=== PATIENT | female | born 1990 | race Caucasian/White ===

== ENCOUNTER → 2017-08-09 | Outpatient (CLI) | payer OTHER ==
[~2017-08-09] MED LIST: FERR1TAB23; PRENTAB26 PO
--- NOTE | 2017-08-09 11:48 | DIAGNOSTIC IMAGING REPORT ---
HYSTEROSALPINGOGRAM HISTORY: Infertility. FLUOROSCOPY TIME: . 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 Multiple spot images were obtained. FINDINGS: The uterine cavity is normal in size, shape, and position. The fallopian tubes are patent and there is free peritoneal spill bilaterally. Right uterine tube passes posterior to the uterine body. IMPRESSION: Normal hysterosalpingogram. The right uterine tube passes posterior to the uterine body The above report was generated using voice recognition software. It may contain grammatical, syntax or spelling errors. Electronically signed by: Neftaly Vivar M.D. 08/09/2017 11:47 AM Dictated Date/Time: 08/09/2017 11:46 AM
== END | disposition home or self-care (01) ==
LOC: C.RAD 10:47
PROVIDERS: ATTEND Obstetrics & Gynecology
DX: N97.9 Female infertility, unspecified (principal)

== ENCOUNTER 2022-04-28 03:26 | Inpatient (IN) ==
[2022-04-28] MEDS ORDERED: LIDOCAINE 1% LOCAL 20 ML VIAL INFIL PRN (03:45)
[2022-04-28] MEDS ORDERED: OXYTOCIN 30 UNITS/500 ML BAG IV PRN ×3 (03:45→12:33)
[2022-04-28] MEDS: LACTATED RINGER'S 1,000 ML IV PRN ×2 (03:57→05:00)
[2022-04-28] MEDS ORDERED: SODIUM CHLORIDE 0.9% INJ 10 ML VIAL ONE (04:04)
[2022-04-28] MEDS ORDERED: ePHEDrine sulfate 50 MG/ML AMP ONE (04:04)
[2022-04-28] MEDS ORDERED: BUPIVACAINE 0.25% 30 ML VIAL ONE (04:04)
[2022-04-28] MEDS ORDERED: fentaNYL citrate 100 MCG/2 ML VIAL ONE (04:04)
[2022-04-28] MEDS ORDERED: LIDOCAINE 2%/EPINEPHRINE 1:200,000 20 ML SDV ONE (04:05)
[2022-04-28] MEDS ORDERED: fentaNYL 2MCG/ML ROPIVACAINE 1.25MG/ML 100 ML BAG EPI ONE (04:05)
[2022-04-28 04:46] LABS: Hematocrit (blood only) 37.4 % (34.1-44.9); Mean Corpuscular Hemoglobin 34.8 pg (25.0-34.0); Mean Corpuscular Hgb Conc 34.8 g/dL (32.0-36.0); Platelet Count 157 K/uL (130-400); RDW Coefficient of Variation 12.9 % (11.5-14.5); RDW Standard Deviation 47.3 fL (36.4-46.3); Red Blood Count 3.74 M/uL (3.93-5.22); White Blood Count 8.35 K/ul (4.8-10.8)
--- NOTE | 2022-04-28 04:54 | Anesthesiology Consultation ---
Date of Service April 28, 2022 Assessment & Plan (1) Encounter for pre-operative examination: Chart Review Chart Review: Acceptable Risk for Labor Epidural History Height/Weight Height: 4 ft 11 in Weight: 64.4 kg Allergies Allergy/AdvReac Type Severity Reaction Status Date / Time No Known Allergies Allergy Unverified 12/05/19 13:19 Medications Home Medications Medication Instructions Recorded Confirmed Last Taken sertraline 50 mg tablet 100 mg PO QAM 04/26/19 04/28/22 04/27/22 levothyroxine 75 mcg capsule 0.5 mcg PO DAILY 03/01/20 04/28/22 04/27/22 oagxcloc-hzj-Kz-FA 1 mg 1 tab PO DAILY 03/01/20 04/28/22 04/27/22 tablet ferrous sulfate 27 mg iron tablet 27 mg PO DAILY 04/28/22 04/28/22 04/27/22 Active Medications Generic Name Dose Route Start Last Admin Trade Name Freq PRN Reason Stop Dose Admin Lactated Ringer's 1,000 mls @ 125 mls/hr 04/28/22 03:45 04/28/22 03:57 Lr IV 04/30/22 03:44 999 mls/hr .Q8H PRN Administration L&D Protocol Protocol Past Medical History Medical History Anxiety Hypothyroidism Past Surgical History Surgical History H/O breast augmentation H/O wisdom tooth extraction History of hysteroscopy Social History Smoking Status: Never smoker Hx Alcohol Use: No Hx Substance Use: No Physical Exam Vital Signs Last Vital Signs Temp 36.8 C 04/28/22 03:44 Pulse 82 04/28/22 04:49 Resp 18 04/28/22 03:44 BP 111/64 04/28/22 03:49 Pulse Ox 99 04/28/22 04:49 Testing Laboratory Results 04/28/22 04:21
[2022-04-28] MEDS ORDERED: ONDANSETRON INJ 2 MG/ML 2 ML VIAL IV PRN (05:18)
[2022-04-28] MEDS ORDERED: ePHEDrine sulfate 50 MG/ML AMP IV PRN (05:18)
[2022-04-28] MEDS ORDERED: fentaNYL 2MCG/ML ROPIVACAINE 1.25MG/ML 100 ML BAG EPI PRN (05:18)
[2022-04-28] MEDS ORDERED: NALOXONE HCL 0.4 MG/1 ML VIAL/CARP IV PRN (05:18)
[2022-04-28] MEDS ORDERED: NALOXONE HCL 1 MG in SODIUM CHLORIDE 0.9% 1000ML 1,000 ML IV PRN (05:18)
--- NOTE | 2022-04-28 07:14 | Obstetrical Progress Note ---
Date of Service April 28, 2022 Assessment & Plan (1) : Plan: FHR; CAT1 Ctx 4-6mins VE; 4-5/60/-2 Epidural analgesia AROM with amnio hook- Clear fluid Anticipate VD Admission and Anticipated Discharge Date Admission Date: April 28, 2022 Results & Data ([facility]) Vital Signs (Past 12 Hours) Vital Signs Temp Pulse Resp BP Pulse Ox 04/28/22 07:10 130 H 100 04/28/22 07:05 117 H 100 04/28/22 07:00 93 H 100 04/28/22 06:55 83 98 04/28/22 06:54 100 H 104/69 04/28/22 06:50 78 97 04/28/22 06:45 90 99 04/28/22 06:40 94 H 99 04/28/22 06:39 81 85/50 L 04/28/22 06:35 78 99 04/28/22 06:30 68 97 04/28/22 06:25 89 97 04/28/22 06:24 68 86/50 L 04/28/22 06:20 87 98 04/28/22 06:15 77 97 04/28/22 06:10 64 96/51 L 97 04/28/22 06:05 72 98 04/28/22 06:00 85 98 04/28/22 05:55 82 98 04/28/22 05:54 66 93/53 L 04/28/22 05:50 78 99 04/28/22 05:45 76 99 04/28/22 05:40 72 99 04/28/22 05:39 68 88/54 L 04/28/22 05:35 69 100 04/28/22 05:30 75 100 04/28/22 05:25 87 99 04/28/22 05:23 78 94/54 L 04/28/22 05:21 75 98/53 L 04/28/22 05:20 91 H 99 04/28/22 05:19 79 94/53 L 04/28/22 05:17 73 89/55 L 04/28/22 05:15 69 96/55 L 99 04/28/22 05:14 76 99/55 L 04/28/22 05:10 83 99 04/28/22 05:05 96 H 99 04/28/22 05:00 86 100 04/28/22 04:54 82 98 04/28/22 04:49 82 99 04/28/22 04:44 84 98 04/28/22 04:39 84 99 04/28/22 04:34 82 98 04/28/22 04:29 80 98 04/28/22 04:24 83 99 04/28/22 04:19 79 99 04/28/22 04:14 81 99 04/28/22 03:49 80 111/64 04/28/22 03:44 36.8 C 18
--- NOTE | 2022-04-28 09:41 | Labor Progress Brief Note ---
Date of Service April 28, 2022 Assessment & Plan Admission and Anticipated Discharge Date Admission Date: April 28, 2022 Physical Exam Genitourinary: OB Exam Abdomen: + estimated weight Manual OB Exam: + cervical dilation 7 cm, + cervical effacement 80%, + station -2 and + amniotic fluid clear OB Exam Monitor Tracing: + external FHT monitor used, + external uterine monitor used, + category I and + normal FHT variability EFW 7.5 lbs will augment contractions with Oxytocin Results & Data ([facility]) Vital Signs (Past 12 Hours) Vital Signs Temp Pulse Resp BP Pulse Ox 04/28/22 09:35 85 100 04/28/22 09:30 86 99 04/28/22 09:25 76 99 04/28/22 09:24 68 97/54 L 04/28/22 09:20 82 99 04/28/22 09:15 74 97 04/28/22 09:10 76 97 04/28/22 09:09 72 96/55 L 04/28/22 09:05 77 98 04/28/22 09:00 77 100 04/28/22 08:55 97 04/28/22 08:55 74 04/28/22 08:55 77 108/55 L 04/28/22 08:50 79 98 04/28/22 08:45 76 98 04/28/22 08:40 36.9 C 78 18 98 04/28/22 08:35 98 H 99 04/28/22 08:30 80 95 04/28/22 08:27 90 94 04/28/22 08:25 82 96 04/28/22 08:24 89 106/66 04/28/22 08:20 79 95 04/28/22 08:19 82 94 04/28/22 08:15 79 96 04/28/22 08:10 74 96 04/28/22 08:09 74 04/28/22 08:09 70 116/73 94 04/28/22 08:05 69 95 04/28/22 08:00 103 H 98 04/28/22 07:57 106 H 94 04/28/22 07:55 93 04/28/22 07:55 77 04/28/22 07:55 94 H 93/60 L 04/28/22 07:50 79 92 04/28/22 07:45 74 18 95 04/28/22 07:44 77 92 04/28/22 07:40 91 H 105/62 96 04/28/22 07:35 68 94 04/28/22 07:30 80 96 04/28/22 07:29 70 93 04/28/22 07:25 99 04/28/22 07:25 90 04/28/22 07:25 85 114/65 04/28/22 07:20 74 96 04/28/22 07:19 71 94 04/28/22 07:15 67 95 04/28/22 07:10 130 H 100 04/28/22 07:05 36.8 C 117 H 18 100 04/28/22 07:00 93 H 100 04/28/22 06:55 83 98 04/28/22 06:54 100 H 104/69 04/28/22 06:50 78 97 04/28/22 06:45 90 99 04/28/22 06:40 94 H 99 04/28/22 06:39 81 85/50 L 04/28/22 06:35 78 99 04/28/22 06:30 68 97 04/28/22 06:25 89 97 04/28/22 06:24 68 86/50 L 04/28/22 06:20 87 98 04/28/22 06:15 77 97 04/28/22 06:10 64 96/51 L 97 04/28/22 06:05 72 98 04/28/22 06:00 85 98 04/28/22 05:55 82 98 04/28/22 05:54 66 93/53 L 04/28/22 05:50 78 99 04/28/22 05:45 76 99 04/28/22 05:40 72 99 04/28/22 05:39 68 88/54 L 04/28/22 05:35 69 100 04/28/22 05:30 75 100 04/28/22 05:25 87 99 04/28/22 05:23 78 94/54 L 04/28/22 05:21 75 98/53 L 04/28/22 05:20 91 H 99 04/28/22 05:19 79 94/53 L 04/28/22 05:17 73 89/55 L 04/28/22 05:15 69 96/55 L 99 04/28/22 05:14 76 99/55 L 04/28/22 05:10 83 99 04/28/22 05:05 96 H 99 04/28/22 05:00 86 100 04/28/22 04:54 82 98 04/28/22 04:49 82 99 04/28/22 04:44 84 98 04/28/22 04:39 84 99 04/28/22 04:34 82 98 04/28/22 04:29 80 98 04/28/22 04:24 83 99 04/28/22 04:19 79 99 04/28/22 04:14 81 99 04/28/22 03:49 80 111/64 04/28/22 03:44 36.8 C 18
[2022-04-28] MEDS ORDERED: DIPHTHERIA/TETANUS/PERTUSSIS 0.5 ML SYR/VIAL IM ONE (12:33)
[2022-04-28] MEDS ORDERED: bisacodyL 10 MG SUPP PR PRN (12:33)
[2022-04-28] MEDS ORDERED: IBUPROFEN 600 MG TAB PO PRN (12:33)
[2022-04-28] MEDS ORDERED: BENZOCAINE 20% AER SPR 82.5 GM CAN EXT PRN (12:33)
[2022-04-28] MEDS ORDERED: HYDROCORTISONE ACETATE 25 MG SUPP PR PRN (12:33)
--- NOTE | 2022-04-28 12:35 | Delivery Summary ---
Vaginal Delivery Summary Date of Service April 28, 2022 Vaginal Delivery Summary Delivery Note live male JEANNETTE over intact perineum with delayed cord clamping. Cord blood obtained followed by spontaneous delivery of intact placenta. No tears. EBL 100 ml. Final sponge and instruments count are correct. Mom and baby stable.
[2022-04-28] MEDS: ACETAMINOPHEN 325 MG TAB PO PRN ×2 (12:48→20:25)
--- NOTE | 2022-04-28 14:32 | Anesthesia Procedure Note ---
Date of Service April 28, 2022 Anesthesia Post Epidural Note Vital Signs Vital Signs: Temp Pulse Resp BP Pulse Ox 36.8 C 71 18 109/57 L 92 04/28/22 11:30 04/28/22 14:24 04/28/22 12:00 04/28/22 14:24 04/28/22 12:24 Pain Intensity Head: Pain Intensity: 2 Notes Mental Status: alert / awake / arousable and participated in evaluation Nausea / Vomiting: adequately controlled Pain: adequately controlled Airway Patency, RR, SpO2: stable & adequate BP & HR: stable & adequate Hydration State: stable & adequate Neuraxial Anesthesia: was administered and sensory block is resolving Anesthetic Complications: no major complications apparent and Pt Satisfied with anesthetic care Epidural: Removed without complications and With tip intact
[2022-04-28] MEDS: DOCUSATE SODIUM 100 MG CAP PO SCH (20:25)
[2022-04-29] MEDS ORDERED: LEVOTHYROXINE SODIUM 75 MCG TABLET PO SCH (06:30)
[2022-04-29] MEDS: ACETAMINOPHEN 325 MG TAB PO PRN (06:32)
[2022-04-29] MEDS ORDERED: PRENATAL VITAMIN 1 TAB PO SCH (08:00)
[2022-04-29] MEDS ORDERED: FERROUS SULFATE 325 MG TAB PO SCH (08:00)
[2022-04-29 08:57] LABS: Hematocrit (blood only) 35.7 % (34.1-44.9); Hemoglobin 12.1 g/dl (12.0-16.0); Mean Corpuscular Hemoglobin 34.3 pg (25.0-34.0); Mean Corpuscular Hgb Conc 33.9 g/dL (32.0-36.0); Mean Corpuscular Volume 101.1 fL (80.0-100.0); Mean Platelet Volume 11.1 fL (9.4-12.3); Platelet Count 155 K/uL (130-400); RDW Coefficient of Variation 13.2 % (11.5-14.5); RDW Standard Deviation 49.3 fL (36.4-46.3); Red Blood Count 3.53 M/uL (3.93-5.22); White Blood Count 9.37 K/ul (4.8-10.8)
[2022-04-29] MEDS: DOCUSATE SODIUM 100 MG CAP PO SCH (08:58)
[2022-04-29] MEDS ORDERED: NON-FORMULARY MEDICATION (Ferrous Sulfate 27 mg iron Tablet) PO SCH (09:00)
[2022-04-29] MEDS ORDERED: NON-FORMULARY MEDICATION (Prenatal Multivit-Min-Fe-Fa 1 mg Tablet) PO SCH (09:00)
[2022-04-29] MEDS ORDERED: SERTRALINE HCL 100 MG TABLET PO SCH (09:00)
--- NOTE | 2022-04-29 10:24 | Obstetrical Progress Note ---
Date of Service April 29, 2022 Assessment & Plan (1) Normal course: PPD #1 pt doing well No complains d/c home with instructions Results & Data ([facility]) Vital Signs (Past 12 Hours) Vital Signs Temp Pulse Resp BP Pulse Ox O2 Del Method 04/29/22 07:55 36.6 C 62 16 101/65 98 Room Air 04/29/22 04:30 36.6 C 68 16 89/59 L Room Air 04/29/22 00:00 36.6 C 73 16 109/72 Room Air
[2022-04-29] MEDS ORDERED: bisacodyL 5 MG TABEC PO SCH (20:00)
--- NOTE | 2022-05-03 18:34 | Coding Query ---
CODING QUERY To promote full compliance with coding requirements relating to patient care, provider participation is requested in all cases of braille coder uncertainty. Please assist us with the question(s) below: Coding Question(s): Please state the patient's weeks of gestation at time of admission. This information is missing from the reports. Physician's Response(s): 38.5 weeks Thank you Diandra Anderson Principal Diagnosis: "that condition established after study, to be chiefly responsible for occasioning the admission of the patient to the hospital for care." Co-Existing Principal Diagnosis: "when two or more diagnoses equally meet the criteria for principal diagnosis as determined by the circumstances of admission, diagnostic work up, and/or therapy provided, and the Alphabetic Index, Tabular List, or another coding guideline does not provide sequencing direction, any one of the diagnoses may be sequenced first." "When the physician has documented what appears to be a current diagnosis in the body of the record, but has not included the diagnosis in the final diagnostic statement, the physician should be asked whether the diagnosis should be added." ([facility] 2 QTR90. p3-4) JOE
== END 2022-04-29 14:25 | disposition home or self-care (01) | DRG 807 ==
LOC: OPB 03:26 → 4S1 03:28 → 4E2 16:10